=== PATIENT | female | born 1945 | race Caucasian/White ===

== ENCOUNTER 2021-04-30 10:30 | Outpatient (CLI) | payer MEDICARE | END 2021-04-30 10:31 | disposition home or self-care (01) | LOC: CTENTCT 10:30 | PROVIDERS: ATTEND Specialist | DX: H90.71 Mixed conductive and sensorineural hearing loss, unilateral, right ear, with unrestricted hearing on the contralateral side (principal) | CPT/HCPCS: 70486 ==

== ENCOUNTER 2023-01-08 10:26 | Outpatient (CLI) | payer OTHER | END 2023-01-08 10:27 | disposition home or self-care (01) | LOC: BICMRI 10:26 | PROVIDERS: ATTEND Family Medicine | DX: M50.121 Cervical disc disorder at C4-C5 level with radiculopathy (principal); M50.122 Cervical disc disorder at C5-C6 level with radiculopathy; M47.22 Other spondylosis with radiculopathy, cervical region; M48.02 Spinal stenosis, cervical region | CPT/HCPCS: 72141 ==

== ENCOUNTER 2023-02-08 13:25 | Outpatient (CLI) | payer OTHER | END 2023-02-08 13:26 | disposition home or self-care (01) | LOC: BICRAD 13:25 | PROVIDERS: ATTEND Family Medicine | DX: R05.3 Chronic cough (principal); Z11.52 Encounter for screening for COVID-19 | CPT/HCPCS: 71046; 87635 ==